=== PATIENT | female | born 1955 | race Caucasian/White ===

== ENCOUNTER 2020-04-19 12:33 | Outpatient (CLI) | payer MEDICARE, SELFPAY ==
--- NOTE | ~2020-04-19 | MR_ITS ---
EXAMINATION: MR shoulder LT wo con DATE: 04/19/2020 13:30 INDICATION: Left shoulder pain. TECHNIQUE: Magnetic resonance imaging (MRI) of the left shoulder was performed without intravenous co ntrast. Sequences included axial PD-weighted FS FSE, coronal oblique PD-weighted FS FSE and T2-weight ed FS FSE, and sagittal oblique T2-weighted FS FSE and T1-weighted FSE. COMPARISON: Left shoulder radiographs 01/10/2020 FINDINGS: Coracoacromial arch: The acromion undersurface is curved in morphology (type II). There is moderate acromioclavicular join t osteoarthritis including inferiorly directed osteophytes. Subacromial spurring is noted. There is m ild subacromial/subdeltoid bursitis. Rotator cuff: There is moderate supraspinatus tendinopathy and mild infraspinatus tendinopathy. Teres minor tendon is normal. There is mild subscapularis tendinopathy. No tear. There is no asymmetric fatty atrophy of the rotator cuff muscle bellies. Biceps tendon and glenoid labrum: Biceps tendon is in bicipital groove. There is mild intra-articular biceps tendinopathy. There is deg enerative tearing of the glenoid labrum. Fluid: There is a moderate-sized glenohumeral joint effusion. Bones/cartilage: There is shallow partial-thickness cartilage loss of glenoid and humeral head. IMPRESSION: 1. Moderate rotator cuff tendinopathy. No tear. 2. Mild glenohumeral joint chondrosis. 3. Moderate-sized glenohumeral joint effusion. 4. Mild intra-articular biceps tendinopathy. 5. Moderate acromioclavicular joint osteoarthritis. 6. Mild subacromial/subdeltoid bursitis. Reviewed, dictated and finalized at location A.
== END 2020-04-19 12:34 | disposition home or self-care (01) ==
PROVIDERS: PCP Internal Medicine Geriatric Medicine; Visit Provider Orthopaedic Surgery
DX: M25.512 Pain in left shoulder (principal)
CPT/HCPCS: 73221

== ENCOUNTER → 2021-04-10 16:44 | Outpatient (CLI) | payer MEDICARE, SELFPAY ==
--- NOTE | ~2021-04-10 | MM_ITS ---
EXAMINATION: MM screening yeny BI w radha HISTORY: Screening TECHNIQUE: Craniocaudal and mediolateral oblique 3-D tomosynthesis images were obtained and synthetic 2-D images were generated. CAD analysis was submitted and interpreted. COMPARISON: No prior mammogram is available for comparison at this institution. BREAST PARENCHYMAL COMPOSITION: There are scattered areas of fibroglandular density. FINDINGS: There is focal asymmetry in the upper outer quadrant of the right breast, middle third. The re are no suspicious masses, calcifications or architectural distortion in the left breast to suggest malignancy. IMPRESSION: 1. Focal asymmetries in the upper outer quadrant of the right breast. 2. Additional mammographic views and possible breast ultrasound are recommended. BI-RADS Category 0: Incomplete: Needs additional imaging evaluation. Reviewed, dictated and finalized at location A. IMPRESSION: 1. Focal asymmetries in the upper outer quadrant of the right breast. 2. Additional mammographic views and possible breast ultrasound are recommended . BI-RADS Category 0: Incomplete: Needs additional imaging evaluation.
== END ==
PROVIDERS: Visit Provider Nurse Practitioner
DX: Z12.31 Encounter for screening mammogram for malignant neoplasm of breast (principal); R92.8 Other abnormal and inconclusive findings on diagnostic imaging of breast
CPT/HCPCS: 77063; 77067

== ENCOUNTER → 2021-04-30 14:59 | Outpatient (CLI) | payer MEDICARE, SELFPAY ==
--- NOTE | ~2021-04-30 | DEXA_ITS ---
Bone Density Report Name: Tati Lopez Age: 66 Sex: Female Ethnicity: White Date of : 1955 Indication: osteopenia; height loss; hysterectomy; postmenopausal Referring Provider: CORRINE, WENDY Study: Bone densitometry was performed. Exam Date: April 30, 2021 Accession number: [id number] Bone Density: Region BMD T-score Z-score Classification AP Spine (L1-L4) 0.932 -1.0 0.9 Normal Femoral Neck (Left) 0.702 -1.3 0.4 Osteopenia Total Hip (Left) 0.734 -1.7 -0.3 Osteopenia Femoral Neck (Right) 0.719 -1.2 0.5 Osteopenia Total Hip (Right) 0.786 -1.3 0.1 Osteopenia Total Hip Mean 0.760 -1.5 -0.1 Osteopenia World Health Organization criteria for BMD impression classify patients as: Normal (T-score at or above -1.0), Osteopenia (T-score between -1.0 and -2.5), or Osteoporosis (T-score at or below -2.5). 10-year Fracture Risk(1): Major Osteoporotic Fracture 9.1% Hip Fracture 1.0% Reported Risk Factors: [place] (), Neck BMD=0.702, BMI=27.8 (1) FRAX(R) Version 3.08. Fracture probability calculated for an untreated patient. Fracture probability may be lower if the patient has received treatment. Previous Exams: Region Exam Age BMD T-score BMD Change BMD Change Date g/cm2 vs Baseline vs Previous AP Spine(L1-L4) 04/30/2021 66 0.932 -1.0 -0.024* -0.014 12/01/2017 62 0.946 -0.9 -0.010 -0.010 11/12/2015 60 0.955 -0.8 Total Hip(Left) 04/30/2021 66 0.734 -1.7 -0.059* -0.014 12/01/2017 62 0.748 -1.6 -0.045* -0.045* 11/12/2015 60 0.793 -1.2 Total Hip(Right) 04/30/2021 66 0.786 -1.3 -0.025 0.012 12/01/2017 62 0.774 -1.4 -0.037* -0.037* 11/12/2015 60 0.811 -1.1 *Denotes significance at 95% confidence level, LSC for AP Spine = 0.022 g/cm2, LSC for Total Hip = 0.027 g/cm2 Clinical Information Provided by Patient: Has used the following medications: HRT (i.e. estrogen/hormone therapy), Vitamin D Has the following medical conditions: Hysterectomy Patient maximum height was 69 Menopause Age: 48 No regular weight bearing exercise Drinks caffeinated beverages Onset of menses at age 10 Number of children 2 Impression: The patient has low bone mass, based on the Left Total Hip T-score. The patient has an estimated ten-year risk of hip fracture of 1% and an estimated ten-year risk of major fra
== END ==
PROVIDERS: Visit Provider Nurse Practitioner
DX: M85.88 Other specified disorders of bone density and structure, other site (principal); M85.852 Other specified disorders of bone density and structure, left thigh; M85.851 Other specified disorders of bone density and structure, right thigh
CPT/HCPCS: 77080

== ENCOUNTER → 2021-05-12 08:13 | Outpatient (CLI) | payer MEDICARE, SELFPAY ==
--- NOTE | ~2021-05-12 | MM_ITS ---
EXAMINATION: MM diagnostic yeny RT w radha HISTORY: Focal asymmetry of the right breast on screening mammogram TECHNIQUE: Additional 3-D tomosynthesis images of the right breast were performed and synthetic 2-D i mages were generated. CAD analysis was submitted and interpreted. COMPARISON: 04/10/2021, 12/04/2019, 09/06/2018 BREAST PARENCHYMAL COMPOSITION: There are scattered areas of fibroglandular density. FINDINGS: There is a return to baseline fibroglandular appearance with spot compression of the right breast in the area questioned on screening mammogram. IMPRESSION: 1. No mammographic evidence of malignancy. 2. Recommend routine screening mammography in one year. BI-RADS Category 1: Negative Reviewed, dictated and finalized at location A.
== END ==
PROVIDERS: PCP Internal Medicine Geriatric Medicine; Visit Provider Obstetrics & Gynecology Gynecology
DX: R92.8 Other abnormal and inconclusive findings on diagnostic imaging of breast (principal)
CPT/HCPCS: 77061; 77065; G0279

== ENCOUNTER 2022-10-27 14:25 | Outpatient (CLI) | payer MEDICARE, SELFPAY ==
--- NOTE | ~2022-10-27 | XR_ITS ---
EXAMINATION: XR abdomen/kub 1V DATE: 10/27/2022 14:53 INDICATION: Right hydronephrosis. TECHNIQUE: A supine view of the abdomen on 2 radiographs was obtained. COMPARISON: CT abdomen and pelvis 10/27/2022 FINDINGS: There are no dilated loops of bowel. There are phleboliths in the pelvis. There is a 15 x 8 mm stone in proximal right ureter at L3-L4. IMPRESSION: 1. 15 x 8 mm stone in proximal right ureter. Reviewed, dictated and finalized at location A. SIT CLERK
--- NOTE | ~2022-10-27 | CT_ITS ---
EXAMINATION: CT abdomen pelvis wo/w con DATE: 10/27/2022 15:20 INDICATION: Right hydronephrosis TECHNIQUE: Computed tomography (CT) of the abdomen and pelvis was performed without intravenous contr ast. CT of the abdomen and pelvis was then performed with a total of 130 mL Omnipaque-350 intravenous contrast using a double-bolus technique for simultaneous opacification of the renal parenchyma and r enal collecting system. Automated exposure control and iterative reconstruction technique were employ ed. The dose-length product was 1308.61 mGy-cm. COMPARISON: None FINDINGS: Minimal discoid atelectasis in the bilateral lower lobes. Heart size is normal. No pericardial or ple ural effusion. Small to moderate-sized sliding-type hiatal hernia. Liver, gallbladder, spleen, pancre as, bilateral adrenal glands are normal. There is mild colonic diverticulosis with a sigmoid predomin ance. There is no adjacent inflammatory change to suggest diverticulitis. No bowel obstruction. The appendix is not visualized. No pericecal inflammatory change to suggest acute appendicitis. Multiple phleboliths in the pelvis. The uterus is not identified and has likely been surgically resected. No p athologically enlarged abdominal or pelvic lymphadenopathy. Mild to moderate lumbar and lower thoraci c spondylosis. There are bilateral low-attenuation nonenhancing renal cysts measuring up to 2.1 cm the right kidney. Minimal rim calcification along one of the cysts in the left kidney. There is an obstructing 1.4 x 0 .8 x 0.5 cm stone at the junction of the proximal to mid right ureter with severe right hydroureteron ephrosis. There is somewhat irregular contour with heterogeneous attenuation at the upper pole of the right kidney which may reflect combination of the mass effect from hydronephrosis and heterogeneous delayed nephrogram however does raise some concern for renal cell carcinoma. No stones seen along the more distal right ureter. The left renal collecting system and ureter are nearly completely opacifie d with contrast with no evident obstructing stone or urothelial irregularities. Mild trabeculated muc osal contour and the bladder. IMPRESSION: 1. Obstructing 1.4 x 0.8 x 0.5 cm stone at the proximal to mid right ureter with severe right hydrour eteronephrosis. 2. Irregular contour and enhancement at the upper pole of the right kidney which most likely and resu lts from architectural distortion and heterogeneous delayed mammogram resulting from a hydronephrosis but does raise small amount of concern for renal cell carcinoma and would recommend follow-up pre an d postcontrast MRI and a few weeks following resolution of the hydronephrosis. 3. Small to moderate-sized sliding-type hiatal hernia. Reviewed, dictated and finalized at location A. CLERK IMPRESSION: 1. Obstructing 1.4 x 0.8 x 0.5 cm stone at the proximal to mid right ureter wit h severe right hydroureteronephrosis. 2. Irregular contour and enhancement at the upper pole of the right kidney whic h most likely and results from architectural distortion and heterogeneous delay ed mammogram resulting from a hydronephrosis but does raise small amount of con cern for renal cell carcinoma and would recommend follow-up pre and postcontras t MRI and a few weeks following resolution of the hydronephrosis. 3. Small to moderate-sized sliding-type hiatal hernia.
[2022-10-27 14:58] LABS: Estimated Glomerular Filt Rate 41
== END 2022-10-27 14:26 | disposition home or self-care (01) ==
PROVIDERS: PCP Internal Medicine Geriatric Medicine; Visit Provider Nurse Practitioner Family
DX: N13.30 Unspecified hydronephrosis (principal); K44.9 Diaphragmatic hernia without obstruction or gangrene; N20.2 Calculus of kidney with calculus of ureter
CPT/HCPCS: 74018; 74178; Q9967

== ENCOUNTER 2022-11-02 15:24 | Outpatient (CLI) | payer MEDICARE, SELFPAY | END 2022-11-02 15:25 | disposition home or self-care (01) | LOC: ANHLAB 15:25 | PROVIDERS: PCP Internal Medicine Geriatric Medicine; Visit Provider Urology | DX: N20.0 Calculus of kidney (principal); Z01.818 Encounter for other preprocedural examination | CPT/HCPCS: 36415; 85610; 85730; 87086; 87088 ==

== ENCOUNTER 2022-11-06 00:55 | Day surgery (SDC) | payer MEDICARE, SELFPAY ==
--- NOTE | 2022-11-02 15:19 | PC.NURSE ---
PRE-OP INSTRUCTIONS, PLEASE READ CAREFULLY Report to the Outpatient Waiting Room, entrance under the green pavilion located off [facility], at time _0630_ on date _11/06/22_. Planned Procedure Time: _0830_. Time changes happen often and if your time is changed the preop area will call you the afternoon before. - You and your visitor will be asked to self-screen and do not enter if you have any COVID symptoms. - Only one visitor is requested with a max of two and NO children visitors are allowed at this time. - The patient visitor may be requested to leave or wait in car when not with patient due to distancing restrictions. - A mask is optional within the hospital at this time. Patients may have clear liquids (water, carbonated beverages, clear teas, apple juice) until 3 hours prior to surgery (0530 AM) with a maximum of 20 ounces. - No food from midnight until time of surgery Take the following medications with a SIP of water the morning of surgery: _AMLODIPINE, DULOXETINE, METOPROLOL_ DO NOT STOP ANY OF YOUR OTHER PRESCRIPTION MEDICATIONS PRIOR TO SURGERY ?EXCEPT THE FOLLOWING Medications to discontinue per physician __PT STATES STOPPING ASPIRIN 10/30/22__ Date to take last dose Please no make-up, nail nigerian, hairspray, perfume, deodorant, or body powder the day of surgery. No jewelry (including any body piercings) or valuables the day of surgery, leave them at home. Please take a shower or bath the night before, or the morning of, surgery with an antibacterial soap. Wear comfortable, loose fitting clothing. - Jewelry must be removed prior to entering the operating room. Rings and piercings that are not removed may be cut off. - The hospital will not accept responsibility for valuables. - Please leave all valuables, including medications, at home the day of surgery. If you are going home after surgery, a licensed waste collection driver must drive you home. - NO public transportation without another adult if you receive anesthesia. - We recommend that an adult stay with you for 24 hours following discharge. - We also recommend that you do not drive, make important decision, drink alcoholic beverages, or take any drugs that were not prescribed by your health care provider for at least 24 hours after your discharge time. Follow any additional instructions given to you from your surgeon. If you or anyone in your household have experienced Covid symptoms in the past week, please notify your surgeon or the nurse liaison at the phone number below for possible testing. Telephone instructions given to _PATIENT_and asked if any additional questions and then verbalized understanding. Patient advised to call surgeon office or pre surgery nurse liaison [phone] if any additional questions.
[2022-11-02 15:36] VITALS: BMI 26.6
[2022-11-06] VITALS (8 sets, daily range): BP systolic 92–126; BP diastolic 57–71; PULSE 63–88; RESP 10–20; TEMP 36.7–37; O2SAT 92–100
--- NOTE | ~2022-11-06 | XR_ITS ---
EXAMINATION: XR abdomen/kub 1V DATE: 11/06/2022 06:40 INDICATION: Kidney stone. TECHNIQUE: A supine view of the abdomen on 2 radiographs was obtained. COMPARISON: Abdomen radiographs 10/27/2022, CT abdomen and pelvis 10/27/2022 FINDINGS: There are no dilated loops of bowel. There is a 15 x 8 mm stone in proximal right ureter at L3. There are phleboliths in the pelvis. IMPRESSION: 1. 15 x 8 mm stone in proximal right ureter. Reviewed, dictated and finalized at location A. AGE SCREENER
[2022-11-06] MEDS: LACTATED RINGERS 1,000 ML 30 ML IV CONT (07:15)
--- NOTE | 2022-11-06 07:27 | WPDHPUPDATE1 ---
History and Physical Update Update Date/Time: 11/06/22 07:27 History and Physical has been reviewed, including an updated exam of the patient. There are NO changes in the patient's condition. Risks, benefits, and alternatives have been discussed and questions answered. Patient agrees to proceed with procedure. Proceed with cysto , right retrograde, right stent , right eswl
--- NOTE | 2022-11-06 08:17 | WPDANESEPPF ---
Anes - Initial Pre Proc Eval Procedure: Operation Date: 11/06/22 08:30 Proposed Procedures p Right Extracorporeal Shock Wave Lithotripsy - Mor Mzea MD s Cystoscopy, Right Stent Placement - Mor Meza MD Date/Time: 11/06/22 08:17 Surgeon: Mor Meza MD Pre Op Diagnosis: right ureteral stone Patient Data Age: 67 Gender: F Height: 1.75 m Weight: 81.95 kg Last Vital Signs Temp 36.7 C 11/06/22 06:44 Pulse 66 11/06/22 06:44 Resp 20 11/06/22 06:44 BP 126/71 11/06/22 06:44 Pulse Ox 99 11/06/22 06:44 O2 Del Method Room Air 11/06/22 06:44 Allergies Allergy/AdvReac Type Severity Reaction Status Date / Time No Known Allergies Allergy Verified 11/02/22 15:06 Home Medications Medication Instructions Recorded Confirmed Type cholecalciferol (vitamin D3) 625 625 mcg PO WEEKLY 01/10/20 11/06/22 History mcg (25,000 unit) capsule duloxetine 30 mg capsule,delayed 30 mg PO DAILY 01/10/20 11/06/22 History release (Cymbalta) gabapentin 300 mg capsule 300 mg PO HS 01/10/20 11/06/22 History amlodipine 10 mg tablet 10 mg QAM 11/02/22 11/06/22 History aspirin 81 mg capsule 81 mg PO DAILY 11/02/22 11/02/22 History dexlansoprazole 60 mg 60 mg DAILY 11/02/22 11/06/22 History capsule,biphase delayed release (Dexilant) metoprolol succinate 25 mg 25 mg PO QAM 11/02/22 11/06/22 History tablet,extended release 24 hr Patient hx anesthesia problems: none Family hx anesthesia problems: none Results Review: All pre-operative results and documents have been reviewed as part of the pre-operative evaluation. [facility] Past Medical History Medical History Arthritis of knee, right Arthritis of left shoulder region BMI 25.0-25.9,adult Fibromyalgia History of shingles left arm/shoulder region Right ankle injury (~1997) kerry 1998 Surgical History Surgical History H/O: hysterectomy History of left knee replacement (~2018) kerry 2018 Hx of appendectomy Hx of tonsillectomy Family History Family History Mother Hypertension Father Hypertension Cerebrovascular accident Heart disease Social History Social History Smoking status: Never smoker Second hand tobacco smoke exposure: No Alcohol intake: current Drinks per week: 4 Alcohol use details: occasional Substance use: never Substance use type: does not use Living arrangements: with family Spiritual care concerns: No Anes - Eval Final PreProcedure Day of Procedure 11/06/22 08:17 Patient weight: overweight Heart: regular rate and rhythm Lungs: clear to auscultation Airway: Mallampati scale class II Neurological: alert and oriented Last oral intake: >/= 8 hours ASA classification: III Emergent: no Anesthetic plan: proceed Anesthesia type and monitoring: general LMA and standard monitoring Results Review: All pre-operative results and documents have been reviewed as part of the pre-operative evaluation. Informed Consent: The patient's anesthetic plan and its attendant risks and benefits were discussed with the patient/family/POA. Questions were solicited and answers provided to the satisfaction of the patient/family/POA.
[2022-11-06] MEDS: ceFAZolin 2 GM/D5W 50 ML 2 GM/50 ML BAG IVPB (08:23)
[2022-11-06] MEDS: LIDOCAINE HCL 2% GEL UROJET 10 ML PKG MUCOUS MEM (08:31)
--- NOTE | 2022-11-06 09:10 | P.OP_ITS ---
Procedure Note - Detailed Date of Procedure 11/06/22 Pre-op Diagnosis right ureteral stone Post-op Diagnosis Same Procedure Performed Cystoscopy, right retrograde pyelogram, right ureteral stent placement 4.8 [place] contour, right ureteral lithotripsy 1.4 cm stone Surgeon Mor Meza MD Anesthesia General Description of Procedure patient was taken to the operative suite correctly identified. Once anesthesia was obtained she was placed in the frog-leg position and prepped draped usual sterile fashion. Sixteen [place] scope was inserted into the bladder. There were no tumors noted. The right ureteral orifice was cannulated with a guidewire. It met resistance at the level of the stone. At this point we used this as a guide for the lithotripsy. The stone was localized in both planes. Three thousand shocks were given the stone. We then advanced a guidewire up into the renal pelvis. Pyelogram was then performed revealed a very hydronephrotic kidney. 4.8 [place] contour stent was then placed with the proximal end coiled in the renal pelvis and the distal in the bladder. Patient was taken recovery stable condition. She will follow-up in 7-10 days with KUB. Will plan on stent removal after the stone is completely gone. Please send a copy this report to my office. Estimated Blood Loss 0 Drains Yes Packing No Pathology None sent Complications No immediate complications Condition Stable Disposition PACU
== END 2022-11-06 10:53 | disposition home or self-care (01) ==
PROVIDERS: PCP Internal Medicine Geriatric Medicine; Visit Provider Urology
PROC: (CPT 50590; principal; 2022-11-06 08:30)
PROC: (CPT 52352; 2022-11-06 08:30)
DX: N20.1 Calculus of ureter (principal); M79.7 Fibromyalgia; Z79.82 Long term (current) use of aspirin
CPT/HCPCS: 52356; 74018; C1758; C1769; C2617; J0690; J1100; J2250; J2270; J2405; J2704; J7030; J7120

== ENCOUNTER 2022-11-26 08:34 | Outpatient (CLI) | payer MEDICARE, SELFPAY ==
--- NOTE | ~2022-11-26 | XR_ITS ---
EXAMINATION: XR abdomen/kub 1V DATE: 11/26/2022 08:54 INDICATION: Right ureteral stone status post lithotripsy. TECHNIQUE: A supine view of the abdomen on 2 radiographs was obtained. COMPARISON: Abdomen radiographs 11/06/2022, CT abdomen and pelvis 10/27/2022 FINDINGS: There is a right internal ureteral stent in expected position. There is ill-defined increas ed density around the distal stent. The kidneys are obscured by bowel. There are phleboliths in the p priyanka. IMPRESSION: 1. Right internal ureteral stent in expected position. 2. Ill-defined increased density in the area of the distal right ureter suspicious for numerous small stones. Reviewed, dictated and finalized at location A. RETTE MAKING EXAMINER IMPRESSION: 1. Right internal ureteral stent in expected position. 2. Ill-defined increased density in the area of the distal right ureter suspici ous for numerous small stones.
== END 2022-11-26 08:35 | disposition home or self-care (01) ==
PROVIDERS: PCP Internal Medicine Geriatric Medicine; Visit Provider Nurse Practitioner Family
DX: N13.30 Unspecified hydronephrosis (principal)
CPT/HCPCS: 74018

== ENCOUNTER 2022-12-02 13:45 | Outpatient (CLI) | payer MEDICARE, SELFPAY ==
--- NOTE | ~2022-12-02 | CT_ITS ---
Non-contrast CT scan of the Abdomen and Pelvis Clinical indication: Hydronephrosis, prior lithotripsy Technique: 2.5 mm axial scans were obtained through the abdomen and pelvis without intravenous or or al contrast. Dose reduction technique was used on this scan by utilizing automated exposure control a nd iterative reconstruction technique. The dose-length product (DLP) was 210.42 mGy-cm. COMPARISON: 10/27/2022 Findings: Images through the lung bases reveal no abnormalities. Right ureteral stent is in place. No stones present in the right ureter or along the course of the st ent. Questionable nonobstructing right renal stone measuring 4 mm versus vascular calcification. No l eft renal or left ureteral stone. Probable small bilateral renal cysts present. Probable minimal righ t hydronephrosis. No left hydronephrosis. The liver, spleen, pancreas, gallbladder, and adrenals appear normal. There is no aortic aneurysm. There is no evidence of bowel obstruction. Probable mild wall thickening since involving the descendi ng and sigmoid colon. No abscess or free air. Images through the pelvis were performed. There is no evidence of ascites or lymphadenopathy. Urinary bladder unremarkable aside from the distal portion of the stent present. Patient is post hysterectom y. No pelvic mass seen. Impression: Right ureteral stent in place, with mild right hydronephrosis. No ureteral stones on either side. Probable 4 mm nonobstructing right renal stone versus possibly vascular calcification. Questionable mild wall thickening involving the descending and sigmoid colon versus underdistention. Correlate for infectious/inflammatory colitis. Reviewed, dictated and finalized at [facility]. Impression: Right ureteral stent in place, with mild right hydronephrosis. No ureteral ston es on either side. Probable 4 mm nonobstructing right renal stone versus possibly vascular calcifi cation. Questionable mild wall thickening involving the descending and sigmoid colon ve rsus underdistention. Correlate for infectious/inflammatory colitis.
--- NOTE | ~2022-12-02 | XR_ITS ---
Supine and upright views of the abdomen Clinical history: Right hydronephrosis COMPARISON: 11/26/2022 Findings: Bowel gas pattern is nonspecific. No evidence for obstruction or free air. Right ureteral s tent in place. Multiple presumed pelvic phleboliths present, unchanged. Distal ureteral or bladder st ones are difficult to exclude. Osseous structures are intact. Impression: Right ureteral stent in place. No definite stones identified. Reviewed, dictated and finalized at location M. Impression: Right ureteral stent in place. No definite stones identified.
== END 2022-12-02 13:46 | disposition home or self-care (01) ==
PROVIDERS: PCP Internal Medicine Geriatric Medicine; Visit Provider Nurse Practitioner Family
DX: N13.30 Unspecified hydronephrosis (principal)
CPT/HCPCS: 74018; 74176

== ENCOUNTER → 2023-01-14 13:42 | Outpatient (CLI) | payer MEDICARE, SELFPAY ==
--- NOTE | ~2023-01-14 | MM_ITS ---
EXAMINATION: MM screening yeny BI w radha HISTORY: Screening mammogram TECHNIQUE: Craniocaudal and mediolateral oblique 3-D tomosynthesis images were obtained and synthetic 2-D images were generated. CAD analysis was submitted and interpreted. COMPARISON: 05/12/2021 diagnostic right mammogram 04/10/2021, 12/04/2019, 09/06/2018 bilateral screening mammogram examinations BREAST PARENCHYMAL COMPOSITION: There are scattered areas of fibroglandular density. FINDINGS: Mild focal fibroglandular asymmetry in the upper outer right breast, stable since 04/10/2021 , benign. There is no evidence of suspicious mass, calcification, or architectural distortion to sugg est malignancy in either breast. There has been no suspicious interval change. IMPRESSION: 1. No mammographic evidence of malignancy. 2. Recommend routine screening mammography in one year. BI-RADS Category 2: Benign finding(s). Reviewed, dictated and finalized at location A.
== END ==
PROVIDERS: PCP Internal Medicine Geriatric Medicine; Visit Provider Obstetrics & Gynecology Gynecology
DX: Z12.31 Encounter for screening mammogram for malignant neoplasm of breast (principal)
CPT/HCPCS: 77063; 77067

== ENCOUNTER 2023-12-09 10:18 | Outpatient (CLI) | payer MEDICARE, SELFPAY ==
--- NOTE | ~2023-12-09 | DEXA_ITS ---
Bone Density Report Name: CHRIS WALKER Age: 68 Sex: Female Ethnicity: White Date of : 1955 Indication: osteopenia; height loss; prior fracture; hysterectomy; postmenopausal Referring Provider: NAYAN BADILLO Study: Bone densitometry was performed. Exam Date: December 09, 2023 Accession number: [id number] Bone Density: Region BMD T-score Z-score Classification AP Spine (L1-L4) 0.938 -1.0 1.2 Normal Femoral Neck (Left) 0.696 -1.4 0.5 Osteopenia Total Hip (Left) 0.726 -1.8 -0.2 Osteopenia Femoral Neck (Right) 0.727 -1.1 0.7 Osteopenia Total Hip (Right) 0.777 -1.4 0.2 Osteopenia Total Hip Mean 0.752 -1.6 0.0 Osteopenia World Health Organization criteria for BMD impression classify patients as: Normal (T-score at or above -1.0), Osteopenia (T-score between -1.0 and -2.5), or Osteoporosis (T-score at or below -2.5). 10-year Fracture Risk(1): Major Osteoporotic Fracture 15% Hip Fracture 2.1% Reported Risk Factors: [place] (), Neck BMD=0.696, BMI=28.6, previous fracture (1) FRAX(R) Version 3.08. Fracture probability calculated for an untreated patient. Fracture probability may be lower if the patient has received treatment. Previous Exams: Region Exam Age BMD T-score BMD Change BMD Change Date g/cm2 vs Baseline vs Previous AP Spine(L1-L4) 12/09/2023 68 0.938 -1.0 -0.017 0.007 04/30/2021 66 0.932 -1.0 -0.024* -0.014 12/01/2017 62 0.946 -0.9 -0.010 -0.010 11/12/2015 60 0.955 -0.8 Total Hip(Left) 12/09/2023 68 0.726 -1.8 -0.067* -0.008 04/30/2021 66 0.734 -1.7 -0.059* -0.014 12/01/2017 62 0.748 -1.6 -0.045* -0.045* 11/12/2015 60 0.793 -1.2 Total Hip(Right) 12/09/2023 68 0.777 -1.4 -0.034* -0.009 04/30/2021 66 0.786 -1.3 -0.025 0.012 12/01/2017 62 0.774 -1.4 -0.037* -0.037* 11/12/2015 60 0.811 -1.1 *Denotes significance at 95% confidence level, LSC for AP Spine = 0.022 g/cm2, LSC for Total Hip = 0.027 g/cm2 Clinical Information Provided by Patient: Has had a low trauma fracture Has used the following medications: Vitamin D Has the following medical conditions: Hysterectomy Patient maximum height was 69 Menopause Age: 48 No regular weight bearing exercise Drinks caffeinated beverages Onset of menses at age 10 Number of children 2
== END 2023-12-09 10:19 ==
PROVIDERS: PCP Internal Medicine Geriatric Medicine; Visit Provider Obstetrics & Gynecology Gynecology
DX: Z78.0 Asymptomatic menopausal state (principal); M85.852 Other specified disorders of bone density and structure, left thigh; M85.851 Other specified disorders of bone density and structure, right thigh
CPT/HCPCS: 77080

== ENCOUNTER 2024-03-08 12:12 | Outpatient (CLI) | payer MEDICARE, SELFPAY ==
--- NOTE | ~2024-03-08 | MM_ITS ---
EXAMINATION: MM screening yeny BI w radha HISTORY: Screening TECHNIQUE: Craniocaudal and mediolateral oblique 3-D tomosynthesis images were obtained and synthetic 2-D images were generated. CAD analysis was submitted and interpreted. COMPARISON: Comparison to multiple prior studies sequentially, with oldest reviewed study dated 06/20. BREAST PARENCHYMAL COMPOSITION: The breasts are almost entirely fatty. FINDINGS: There is no evidence of suspicious mass, calcification, or architectural distortion to sugg est malignancy in either breast. There has been no suspicious interval change. IMPRESSION: 1. No mammographic evidence of malignancy. 2. Recommend routine screening mammography in one year. BI-RADS Category 1: Negative Reviewed, dictated and finalized at location B.
== END 2024-03-08 12:13 ==
LOC: MICIMG 12:13
PROVIDERS: PCP Internal Medicine Geriatric Medicine; Visit Provider Nurse Practitioner
DX: Z12.31 Encounter for screening mammogram for malignant neoplasm of breast (principal)
CPT/HCPCS: 77063; 77067